=== PATIENT | male | born 1970 | race Caucasian/White ===

== ENCOUNTER → 2020-06-21 | Outpatient (CLI) | payer OTHER ==
--- NOTE | 2020-06-21 14:54 | KCIC ---
EXAMINATION: MRI LEFT KNEE WITHOUT IV CONTRAST CLINICAL HISTORY: Worsening chronic left knee pain and instability. History of ACL reconstruction in 2000. TECHNIQUE: Multiplanar multisequential images obtained through the knee without intravenous contrast. COMPARISON: None FINDINGS: Evaluation limited by prominent multifocal susceptibility artifact related to prior surgery. MENISCI: Medial Meniscus: Findings compatible with large partial meniscectomy without definite recurrent tear. Lateral Meniscus: Diminutive appearance of the posterior horn, possibly related to partial meniscecto my or poorly visualized tearing. LIGAMENTS: ACL: Poorly visualized secondary to extensive artifact, cannot exclude graft tear PCL: Intact MCL: Intact LCL Complex: Intact CARTILAGE: Medial Femoral Condyle: Large area(s) of full thickness cartilage loss/fissuring with subchondral mar row reactive/cystic changes in the weightbearing portion of the condyle Medial Tibial Plateau: Large area(s) of full thickness cartilage loss/fissuring with subchondral rosa ow reactive/cystic changes Lateral Femoral Condyle: Large area(s) of predominantly high grade (greater than 50% thickness) carti senthil loss and or fissuring with smaller area(s) of full thickness cartilage loss and or fissuring wit h subchondral marrow reactive/cystic changes Lateral Tibial Plateau: Small area(s) of full thickness cartilage loss and or fissuring Patella: Normal Trochlea: Small area(s) of full thickness cartilage loss and or fissuring with subchondral marrow ann marie ctive/cystic changes in the lateral trochlea TENDONS: Distal quadriceps and patellar tendons intact. Postoperative changes related to bone patella r tendon bone autograft harvesting. Popliteus tendon intact. BONES AND MARROW: No evidence of acute fracture or suspicious marrow replacing process. MUSCLES: Muscle bulk and signal intensity within normal limits. JOINT FLUID AND SYNOVIUM: Moderate joint effusion with several small joint bodies. Mild synovitis. Sm all Eden's cyst. IMPRESSION: Tricompartmental full-thickness chondral wear, advanced in the medial compartment. Poorly visualized ACL graft secondary to extensive artifact, cannot exclude graft tear. Findings compatible with partial medial lateral meniscectomies without definite meniscal tear. Electronically signed by: Woodrow Vicente DO (06/21/2020 2:52 PM) [id number]
== END ==
LOC: KCIC MRI 10:39
PROVIDERS: ATTEND Family Medicine
DX: M25.362 Other instability, left knee (principal)
CPT/HCPCS: 73721